=== PATIENT | male | born 1955 | race Caucasian/White ===

== ENCOUNTER 2023-06-08 06:37 | Day surgery (SDC) | payer MEDICARE ==
[2023-06-08 07:58] VITALS: BP 142/71; TEMP 98.1
[2023-06-08] MEDS ORDERED: FLU VACC QS2023(65UP)/MF59C/PF 60 MCG/0.5 ML SYRINGE IM ONE (08:15)
[2023-06-08] MEDS ORDERED: Nitroglycerin 50 MG/250 ML BOT 250 ML ONE (08:15)
[2023-06-08] MEDS ORDERED: Lidocaine 1% (PF) 30 ML VIAL ONE (08:16)
[2023-06-08] MEDS ORDERED: Heparin 10,000 UNITS/ 10 ML VIAL ONE (08:16)
[2023-06-08] MEDS ORDERED: Adenosine 6 mg (2 mL) VIAL ONE (08:17)
[2023-06-08] MEDS ORDERED: Metoprolol Tartrate 5 MG (5 mL) VIAL ONE (08:30)
[2023-06-08] MEDS ORDERED: Verapamil 5 MG/2 ML VIAL ONE (08:46)
[2023-06-08 09:23] LABS: Anion Gap 11 mmol/L (10-20); BUN (Urea Nitrogen) 18 mg/dL (8.4-25.7); Calc. Creatinine Clearance 84 mL/min (70-130); Calcium 8.8 mg/dL (7.8-10.44); Carbon Dioxide 28 mmol/L (23-31); Chloride 103 mmol/L (98-107); Estimated GFR 86; Glucose 98 mg/dL (80-115); Potassium 3.9 mmol/L (3.5-5.1); Sodium 138 mmol/L (136-145)
[2023-06-08 09:25] LABS: #Eosinphils 0.1 10x3/uL (0.0-0.5); #Monocytes 0.7 10x3/uL (0.0-1.1); #Neutrophils 5.2 10x3/uL (1.5-8.4); %Basophils 0.6 % (0.0-2.0); %Lymphocytes 12.5 % (18.0-47.0); %Monocytes 9.4 % (0.0-10.0); %Neutrophils 75.2 % (40.0-75.0); Hematocrit 33.9 % (38.8-50.0); Hemoglobin 11.2 g/dL (13.5-17.5); Mean Corpuscular Hemoglobin 31.2 pg (27.0-33.0); Mean Corpuscular Volume 94.4 fl (81.2-95.1); Mean Platelet Volume 9.8 fl (7.4-10.4); Platelet Count 272 10x3/uL (150-450); RBC Distribution Width 11.2 % (11.5-14.5); Red Blood Cell (RBC) Count 3.59 10x6/uL (4.32-5.72); White Blood Cell (WBC) Count 6.9 10x3/uL (3.5-10.5)
[2023-06-08] MEDS ORDERED: Midazolam HCl 2 mg/2 ml Vial ONE (09:29)
[2023-06-08] MEDS ORDERED: fentaNYL 50 mcg/mL 1 mL Vial ONE (09:29)
[2023-06-08] MEDS ORDERED: Iopamidol 300 61% 100 ML VIAL FS ONE (09:47)
== END 2023-06-08 13:44 | disposition home or self-care (01) ==
LOC: CSHSDC 06:37
PROVIDERS: ATTEND Specialist
PROC: 4A023N7 Measurement of Cardiac Sampling and Pressure, Left Heart, Percutaneous Approach (ICD-10-PCS; principal; 2023-06-08)
PROC: B205YZZ Plain Radiography of Left Heart using Other Contrast (ICD-10-PCS; 2023-06-08)
DX: R07.9 Chest pain, unspecified (principal); K74.60 Unspecified cirrhosis of liver; I48.3 Typical atrial flutter; I42.9 Cardiomyopathy, unspecified; R61 Generalized hyperhidrosis; I50.20 Unspecified systolic (congestive) heart failure; I34.0 Nonrheumatic mitral (valve) insufficiency; I44.7 Left bundle-branch block, unspecified; Z98.890 Other specified postprocedural states; Z79.899 Other long term (current) drug therapy; Z79.01 Long term (current) use of anticoagulants
CPT/HCPCS: 80048; 85025; 93005; 93458; C1769; C1894; J3010; 93010; 99152; J0153; J1644; J2001; J2250; Q9967